=== PATIENT | female | born 1965 | race Caucasian/White ===

== ENCOUNTER 2017-08-02 15:53 | Emergency (ER) | payer OTHER, BC ==
[~2017-08-02] VITALS: Ht 154.9 cm; Wt 71.1 kg
[2017-08-02 16:48] LABS: HEMATOCRIT 38.3 % (36.0-46.0); MCH 29.5 PG (29.0-34.0); MCHC 33.4 G/DL (30.0-36.0); MCV 88.2 FL (83-99); MEAN PLAT.VOLUME 11.5 uM^3 (9.5-12.4); PLATELET COUNT 254 K/uL (156-360); RBC DIS.WIDTH-CV 13.1 % (11.8-14.6); RED BLOOD COUNT 4.34 M/uL (3.80-5.20); WHITE BLOOD COUNT 6.5 K/uL (4.1-10.2)
[2017-08-02 17:01] LABS: CHLORIDE 106 mEq/L (99-109); POTASSIUM 4.1 mEq/L (3.7-5.4); SODIUM 140 mEq/L (136-147)
[2017-08-02 17:03] LABS: GLUCOSE 127 mg/dL (70-99)
[2017-08-02 17:05] LABS: ANION GAP 10 MEQ/L (2-14)
[2017-08-02 17:07] LABS: GFR ESTIMATE (CALCULATED) > 59 mL/min/
[2017-08-02 17:08] LABS: UREA NITROGEN (BUN) 13 mg/dL (9-23)
[2017-08-02] MEDS ORDERED: FLEXERIL10 MG PO (18:33)
[2017-08-02] MEDS ORDERED: NAPROXEN500 MG PO (18:33)
[2017-08-02 19:05] VITALS: BP 156/100
== END 2017-08-02 19:09 | disposition home or self-care (01) ==
LOC: EME 15:53
PROVIDERS: Physician Assistant Medical
DX: S40.812A Abrasion of left upper arm, initial encounter (principal); S40.811A Abrasion of right upper arm, initial encounter; S30.811A Abrasion of abdominal wall, initial encounter; M25.512 Pain in left shoulder; M54.2 Cervicalgia; R07.1 Chest pain on breathing; V49.40XA Driver injured in collision with unspecified motor vehicles in traffic accident, initial encounter; Y92.410 Unspecified street and highway as the place of occurrence of the external cause; M50.322 Other cervical disc degeneration at C5-C6 level; Q76.5 Cervical rib; Z87.891 Personal history of nicotine dependence
CPT/HCPCS: 71020; 72040; 73030; 74177; 80048; 85027; 99281; 99285; J7030